=== PATIENT | female | born 1955 | race Caucasian/White ===

== ENCOUNTER 2020-12-19 10:18 | Inpatient (IN) ==
[2020-12-19] MEDS ORDERED: DEXAMETHASONE 4 MG TABLET PO ONE ×2 (10:46→11:00)
[2020-12-19] MEDS ORDERED: LACTATED RINGERS 1,000 ML IV ONE ×2 (10:52→12:27)
--- NOTE | 2020-12-19 10:57 | Emergency Department Note ---
SOB HPI General Chief Complaint: Shortness of Breath/Dyspnea Stated Complaint: shortness of breath, hypoxia, covid Time Seen by Provider: 12/19/20 10:32 Source: patient Mode of arrival: wheelchair Limitations: no limitations History of Present Illness HPI Narrative: Patient is a 65-year-old lady who arrives the emergency department by private vehicle accompanied by her complaining of cough. History is provided by the patient and her and supplemental information provided by the urgent care provider who initially evaluated them. The patient has had a cough for the last 8 days. This was gradual in onset has been progressively worsening. She denies any associated fever chills chest pain or shortness of breath. She has had decreased appetite and generalized malaise. Her has been ill with similar symptoms. They both presented to minor care this morning for evaluation and she was found to be hypoxemic with oxygen saturation in the low 80s on room air. A Covid swab was obtained at that time which was positive. She was then referred to the emergency department for further evaluation and treatment. Related Data Home Medications Medication Instructions Recorded Confirmed cranberry 1 tab PO DAILY 01/05/20 12/19/20 potassium gluconate 595 mg (99 mg) 595 mg PO .COMPLEX 01/05/20 12/19/20 tablet zinc gluconate 30 mg PO DAILY 11/25/20 12/19/20 Previous Rx's Medication Instructions Recorded cholecalciferol (vitamin D3) 1,250 1,250 mcg PO QMONTH #12 cap 04/05/20 mcg (50,000 unit) capsule levothyroxine 125 mcg tablet 125 mcg PO QDAY #90 tab 10/04/20 lisinopril 20 0.5 tab PO QDAY #45 tab 10/04/20 mg-hydrochlorothiazide 25 mg tablet Allergies Allergy/AdvReac Type Severity Reaction Status Date / Time sulfamethoxazole Allergy Intermediate facial Verified 12/19/20 10:23 swelling Review of Systems ROS ROS Narrative: Narrative: All systems ED: reviewed and negative except as stated. Constitutional: Denies fever and chills Gastrointestinal: Denies abdominal pain, nausea, vomiting and diarrhea PFSH Narrative Patient History Narrative: Narrative: Medical/Surgical/Family History All Active Problems (Updated 12/20/20 @ 08:05 by Fadi Merino DO) Acute respiratory failure due to COVID-19 (Acute) Hypoxia (Acute) Screening for malignant neoplasm of colon (Acute) Encounter to establish care (Acute) HLD (hyperlipidemia) (Acute) HTN (hypertension) (Acute) Hypothyroidism (Acute) History of knee replacement (Acute ~2014) History of tubal ligation (Acute ~1980) History of hysterectomy (Acute ~1989) Thyroid gland disease (Acute) History of colonoscopy (Acute) Dysuria (Acute) Medical History HLD (hyperlipidemia) HTN (hypertension) Hypothyroidism Screening for malignant neoplasm of colon Thyroid gland disease Surgical History History of colonoscopy History of hysterectomy (~1989) History of knee replacement (~2014) History of tubal ligation (~1980) Family History Family/Other Diabetes Grandparent Mother High blood pressure Social History Smoking Status: Never smoker Alcohol Intake Frequency: does not drink Substance Use: does not use Exam Narrative Narrative: I reviewed the vital signs. Gen -patient is awake and alert and in no acute distress. The patient is well groomed. HEENT -head is atraumatic. There is no conjunctival pallor or scleral icterus. Mucous membranes are dry CV -S1-S2 regular rate and rhythm. Peripheral pulses are palpable. There is no JVD. Resp -breathing is slightly labored with tachypnea and slight conversational dyspnea while on supplemental oxygen via nasal cannula. Lungs have mild rhonchi bilaterally. There is no cyanosis. GI - Abdomen is soft and nontender to palpation. There is no guarding or rebound tenderness. Derm -skin is warm and dry. There is no visible rash. MSK -present extremities are atraumatic. Psych -patient has appropriate affect. The patient does not appear internally stimulated. Neuro -patient answers questions appropriately with fluent speech. Patient moves all present extremities equally. General Limitations: no limitations Course Vital Signs Vital signs: Vital Signs Temperature 98.1 F 12/19/20 10:18 Pulse Rate 87 12/19/20 10:18 Respiratory Rate 24 H 12/19/20 10:18 Blood Pressure 123/78 12/19/20 10:18 Pulse Oximetry (%) 75 L 12/19/20 10:18 Temperature 97.6 F 12/20/20 04:01 Pulse Rate 58 L 12/20/20 06:02 Respiratory Rate 26 H 12/20/20 06:02 Blood Pressure 137/30 12/20/20 06:02 Pulse Oximetry (%) 92 12/20/20 06:11 MDM MDM Narrative Medical decision making narrative: Patient presents with cough and hypoxia. Chest x-ray reveals patchy multifocal infiltrates. Her Covid test is positive. Labs remarkable for leukopenia and transaminitis consistent with her Covid diagnosis. Patient does have a slight elevation in her troponin but given her symptoms and acute kidney injury I think this is likely due to a type II myocardial stress from her acute Covid infection. I discussed the test results with the patient and her . They are agreeable with plan for admission. I discussed the patient's history examination and diagnostic findings with Dr. Zaldivar, who agrees with the plan of care and accepts admission. Critical care time I provided 34 minutes of critical care time. This was in addition to any separately billable procedures. The patient was given supplemental oxygen to treat her hypoxemic respiratory failure. She was given corticosteroids to treat the causative Covid pneumonia. She was given IV fluids to treat her acute kidney injury.. The patient was closely monitored for response to treatment and stability of vital signs throughout their emergency department stay. Lab Data Lab results reviewed: Yes I reviewed the patient's lab results. Result diagrams: 12/20/20 04:49 12/19/20 10:53 Labs: Lab Results 12/19/20 12/19/20 12/19/20 Range/Units 10:53 10:53 10:54 WBC TNP RBC TNP Hgb TNP Hct TNP MCV TNP MCH TNP MCHC TNP RDW TNP Plt Count TNP MPV TNP Neut % (Auto) TNP Lymph % (Auto) TNP [place] % (Auto) TNP Eos % (Auto) TNP Baso % (Auto) TNP Lymph # (Auto) TNP [place] # (Auto) TNP Eos # (Auto) TNP Baso # (Auto) TNP Seg Neutrophils % (38-78) % Band Neutrophils % (0-10) % Lymphocytes % (15-49) % Monocytes % (Manual) (1-12) % Absolute Neutrophils TNP Differential Comment TNP Reactive Lymphocytes (0-2) % Platelet Estimate (Normal) RBC Morphology (Normal) VBG Lactic Acid (0.5-2.0) mmol/L Sodium 137 (133-145) mmol/L Potassium 4.0 (3.3-5.1) mmol/L Chloride 102 (96-108) mmol/L Carbon Dioxide 18 L (22-30) mmol/L Anion Gap 17.0 H (8.0-16.0) BUN 18 (8-23) mg/dL Creatinine 1.0 (0.6-1.1) mg/dL GFR Calculation 60 Glucose 95 (70-105) mg/dL Calcium 9.2 (8.6-10.4) mg/dL Total Bilirubin 0.5 (0.1-1.0) mg/dL AST 66 H (<32) U/L ALT 42 H (<40) U/L Alkaline Phosphatase 69 (39-117) U/L Total Protein 6.7 (5.9-8.4) gm/dL Albumin 3.2 (3.2-5.2) gm/dL Globulin 3.5 (2.2-3.7) gm/dL Albumin/Globulin Ratio 0.9 L (1.0-2.3) Procalcitonin 0.18 H (<0.10) ng/mL 12/19/20 12/19/20 Range/Units 11:24 11:35 WBC 3.8 L RBC 4.49 Hgb 14.0 Hct 39.8 MCV 88.6 MCH 31.2 MCHC 35.2 RDW 12.3 Plt Count 222 MPV 10.8 H Neut % (Auto) Lymph % (Auto) [place] % (Auto) Eos % (Auto) Baso % (Auto) Lymph # (Auto) [place] # (Auto) Eos # (Auto) Baso # (Auto) Seg Neutrophils % 65 (38-78) % Band Neutrophils % 8 (0-10) % Lymphocytes % 17 (15-49) % Monocytes % (Manual) 6 (1-12) % Absolute Neutrophils Differential Comment Reactive Lymphocytes 4 H (0-2) % Platelet Estimate Normal (Normal) RBC Morphology Normal (Normal) VBG Lactic Acid 1.1 (0.5-2.0) mmol/L Sodium (133-145) mmol/L Potassium (3.3-5.1) mmol/L Chloride (96-108) mmol/L Carbon Dioxide (22-30) mmol/L Anion Gap (8.0-16.0) BUN (8-23) mg/dL Creatinine (0.6-1.1) mg/dL GFR Calculation Glucose (70-105) mg/dL Calcium (8.6-10.4) mg/dL Total Bilirubin (0.1-1.0) mg/dL AST (<32) U/L ALT (<40) U/L Alkaline Phosphatase (39-117) U/L Total Protein (5.9-8.4) gm/dL Albumin (3.2-5.2) gm/dL Globulin (2.2-3.7) gm/dL Albumin/Globulin Ratio (1.0-2.3) Procalcitonin (<0.10) ng/mL Discharge Plan Patient/Caregiver Discharge Instructions Pt seen by BRICK MOLDER HAND/PA only: No Clinical Impression: Acute respiratory failure due to COVID-19 Patient Disposition: Xfer As Inpt ([facility]) Condition: Fair Discharge Date/Time: 12/19/20 19:18 Discharge Location: [facility]
--- NOTE | 2020-12-19 11:13 | XRay Report ---
INDICATION: pneumonia TECHNIQUE: AP portable upright chest x-ray COMPARISON: None FINDINGS: Lungs:Bilateral interstitial pulmonary parenchymal infiltrates. Although this appearance is nonspecific and is consistent with covid pneumonia. Heart, vascular:No significant cardiomegaly. Pulmonary vascularity is normal. No pulmonary edema or pulmonary congestion Mediastinum, dimas:No mediastinal widening. No hilar mass Pleura:No pleural fluid. No pleural-based mass or calcification Skeletal:Negative. IMPRESSION: 1. Bilateral interstitial pulmonary parenchymal infiltrates 2. Radiographic appearance is consistent with covid pneumonia Interpreted and Authenticated by: Amaury Cotto 12/19/20
[2020-12-19 11:54] LABS: ALT/SGPT 42 U/L (<40); AST/SGOT 66 U/L (<32); Albumin 3.2 gm/dL (3.2-5.2); Albumin/Globulin Ratio 0.9 (1.0-2.3); Alkaline Phosphatase 69 U/L (39-117); Bilirubin,Total 0.5 mg/dL (0.1-1.0); Blood Urea Nitrogen 18 mg/dL (8-23); Calcium 9.2 mg/dL (8.6-10.4); Carbon Dioxide 18 mmol/L (22-30); Chloride 102 mmol/L (96-108); Globulin 3.5 gm/dL (2.2-3.7); Glomerular Filtration Rate 60; Glucose 95 mg/dL (70-105)
[2020-12-19 12:25] LABS: Hematocrit 39.8 % (36.0-48.0); Mean Cell Volume 88.6 fL (80.0-100.0); Mean Corpuscular HGB Conc 35.2 g/dL (31.0-36.0); Mean Platelet Volume 10.8 fL (7.4-10.4); Platelet Count 222 K/mcL (140-440); RBC 4.49 M/mcL (4.00-5.20); Red Cell Distribution Width 12.3 % (11.5-14.5); WBC 3.8 K/mcL (4.5-11.0)
[2020-12-19 13:41] LABS: Band Neutrophils % 8 % (0-10); Lymphocytes % 17 % (15-49); Monocytes % (Manual) 6 % (1-12); Platelet Estimate NORMAL (Normal); RBC Morphology NORMAL (Normal); Reactive Lymphocytes 4 % (0-2); Segmented Neutrophils % 65 % (38-78)
[2020-12-19] MEDS ORDERED: BENZONATATE 100 MG CAPSULE PO ONE (14:10)
--- NOTE | 2020-12-19 17:54 | Internal Med History&Physical ---
HPI History of Present Illness Patient information: Note initiated : 12/19/20 at 5:47 pm Service Date, if different from initiated Date: [] Patient: Eduardo Solis 65 y/o F admitted on for shortness of breath, hypoxia, covid. Chief Complaint: [CoVID pneumonia] History of present illness: Ms. Solis is a 65 year old F history of hypertension and hypothyroidism, presenting with 8-day history of shortness of breath, nonproductive cough, and general body weakness. There is no prior similar episode. Patient denies any recent travel. Patient is living with her sharing similar symptoms and he is also being tested positive for Covid pneumonia. Patient is not vaccinated against Covid pneumonia. Patient was in her usual state of health until last Saturday when she developed sudden onset shortness of breath, nonproductive cough, and general body weakness. She denies any wheezing. She denies any fever, chills, or diaphoresis. She denies any loss of smell or taste sensations. She denies any chest pain or chest tightness. She denies any nausea, vomiting, diarrhea, or constipation's. Due to her symptoms, she presented to our ED for further evaluation and treatment. Vital signs upon ER presentation significant for hypoxia with oxygen saturation as low as in the 60s on room air. Keri test positive for Covid pneumonia. Labs significant for WBC of 3.8. Serum lactic acid 1.9. ABG showing pH of 7.42, PCO2 of 33, PO2 of 66, and bicarb of 21.4. Chest x-ray showing bilateral pulmonary infiltrates typical for Covid pneumonia. Constitutional Constitutional: Present weakness; Absent chills, excessive sweating, fatigue and fever(s) EENT Eyes: Absent blurry vision, change in vision, loss of vision and other visual disturbances Ears: Absent decreased hearing and tinnitus Nose, mouth and throat: Absent abnormal hearing, dry mouth, headache(s), nasal congestion and sore throat Cardiovascular Cardiovascular: Absent chest pain, chest pain at rest, edema, irregular heart rhythm and palpatations Respiratory Respiratory: Present cough, dyspnea and dyspnea on exertion; Absent wheezing Gastrointestinal Gastrointestinal: Absent abdominal pain, constipation, diarrhea, nausea and vomiting Musculoskeletal Musculoskeletal: Absent back pain, deformity, limited range of motion, muscle cramps, muscle weakness and numbness Integumentary Integumentary: Absent lesions, rash and wounds Neurological Neurological: Absent focal weakness, headache(s) and numbness Psychiatric Psychiatric: Absent anxiety, depression and hallucinations PFSH PFSH All Active Problems (Updated 12/19/20 @ 17:56 by Jerald Zaldivar MD) Acute respiratory failure due to COVID-19 (Acute) Hypoxia (Acute) Screening for malignant neoplasm of colon (Acute) Encounter to establish care (Acute) HLD (hyperlipidemia) (Acute) HTN (hypertension) (Acute) Hypothyroidism (Acute) History of knee replacement (Acute ~2014) History of tubal ligation (Acute ~1980) History of hysterectomy (Acute ~1989) Thyroid gland disease (Acute) History of colonoscopy (Acute) Dysuria (Acute) Medical History HLD (hyperlipidemia) HTN (hypertension) Hypothyroidism Screening for malignant neoplasm of colon Thyroid gland disease Surgical History History of colonoscopy History of hysterectomy (~1989) History of knee replacement (~2014) History of tubal ligation (~1980) Family History Family/Other Diabetes Grandparent Mother High blood pressure Social History marital status: alcohol intake frequency: does not drink substance use type: does not use MEDS/ALLERGIES Home Medications and Allergies Home Medications Medication Instructions Recorded Confirmed Type cranberry 1 tab PO DAILY 01/05/20 12/19/20 History potassium gluconate 595 mg (99 mg) 595 mg PO .COMPLEX 01/05/20 12/19/20 History tablet cholecalciferol (vitamin D3) 1,250 1,250 mcg PO QMONTH #12 cap 04/05/20 12/19/20 Rx mcg (50,000 unit) capsule levothyroxine 125 mcg tablet 125 mcg PO QDAY #90 tab 10/04/20 12/19/20 Rx lisinopril 20 0.5 tab PO QDAY #45 tab 10/04/20 12/19/20 Rx mg-hydrochlorothiazide 25 mg tablet zinc gluconate 30 mg PO DAILY 11/25/20 12/19/20 History Allergies Allergy/AdvReac Type Severity Reaction Status Date / Time sulfamethoxazole Allergy Intermediate facial Verified 12/19/20 10:23 swelling EXAM Constitutional Vitals: Temp Pulse Resp BP Pulse Ox 36.7 C 67 29 H 115/72 91 12/19/20 10:18 12/19/20 17:15 12/19/20 17:15 12/19/20 17:15 12/19/20 17:15 General appearance: cooperative and no acute distress Head Head exam: Present atraumatic and normocephalic Eye Eye exam: Present EOMI and PERRL ENT ENT exam: Present mucous membranes moist, normal exam and normal external ear exam Additional comments: Nasal cannula in place Neck Neck exam: Present normal inspection; Absent lymphadenopathy, tenderness and thyromegaly Respiratory Respiratory exam: Present rhonchi; Absent accessory muscle use, respiratory distress and wheezes Cardiovascular Cardiovascular exam: Present normal rate and rhythm; Absent JVD GI/Abdominal GI/Abdominal exam: Present normal bowel sounds and soft; Absent organomegaly and tenderness Extremities Exam Extremities exam: Present full ROM, normal capillary refill and normal inspection; Absent tenderness Neurological Exam Neurological exam: Present alert, CN II-XII intact and oriented X3; Absent motor sensory deficit Psychiatric Psychiatric exam: Present normal affect and normal mood; Absent anxious and depressed Skin Skin exam: Present dry and intact DATA Data Completed and Pending Labs: Labs from last 24 hours 12/19/20 12/19/20 12/19/20 11:35 11:24 10:53 WBC 3.8 L RBC 4.49 Hgb 14.0 Hct 39.8 MCV 88.6 MCH 31.2 MCHC 35.2 RDW 12.3 Plt Count 222 MPV 10.8 H Neut % (Auto) Lymph % (Auto) [place] % (Auto) Eos % (Auto) Baso % (Auto) Lymph # (Auto) [place] # (Auto) Eos # (Auto) Baso # (Auto) Seg Neutrophils % 65 Band Neutrophils % 8 Lymphocytes % 17 Monocytes % (Manual) 6 Absolute Neutrophils Differential Comment Reactive Lymphocytes 4 H Platelet Estimate Normal RBC Morphology Normal VBG Lactic Acid 1.1 Sodium 137 Potassium 4.0 Chloride 102 Carbon Dioxide 18 L Anion Gap 17.0 H BUN 18 Creatinine 1.0 GFR Calculation 60 Glucose 95 Calcium 9.2 Total Bilirubin 0.5 AST 66 H ALT 42 H Alkaline Phosphatase 69 Total Protein 6.7 Albumin 3.2 Globulin 3.5 Albumin/Globulin Ratio 0.9 L 12/19/20 10:53 WBC TNP RBC TNP Hgb TNP Hct TNP MCV TNP MCH TNP MCHC TNP RDW TNP Plt Count TNP MPV TNP Neut % (Auto) TNP Lymph % (Auto) TNP [place] % (Auto) TNP Eos % (Auto) TNP Baso % (Auto) TNP Lymph # (Auto) TNP [place] # (Auto) TNP Eos # (Auto) TNP Baso # (Auto) TNP Seg Neutrophils % Band Neutrophils % Lymphocytes % Monocytes % (Manual) Absolute Neutrophils TNP Differential Comment TNP Reactive Lymphocytes Platelet Estimate RBC Morphology VBG Lactic Acid Sodium Potassium Chloride Carbon Dioxide Anion Gap BUN Creatinine GFR Calculation Glucose Calcium Total Bilirubin AST ALT Alkaline Phosphatase Total Protein Albumin Globulin Albumin/Globulin Ratio A/P Assessment and plan (1) HTN (hypertension): Status: Acute (2) Hypothyroidism: Status: Acute (3) Acute respiratory failure due to COVID-19: Status: Acute Narrative A/P Narrative: Assessment and Plans: 1. CoVID Pneumonia: Admit to inpatient PCU with telemetry Supplemental oxygen therapy, titrate to achieve spo2 >=92. BiPAP stands by Isolation: airborne and contact CT chest w/o contrast Blood culture Inflammatory markers daily ABG in the morning Remdesivir Dexamethasone Lovenox Lasix Robitussin DM PRN cough Tylenol PRN fever DuoNEB NEB PRN wheezing or SOB cbc w/ auto diff in the morning to trend WBC 2. Essential HTN: Currently normotensive Lisinopril HCTZ 3. Hypothyroidism: Continue thyroid replacement therapy GI ppx: not currently indicated DVT ppx: Lovenox Code status: Full Prognosis: guarded Disposition: inpatient PCU Time Spent With Patient Time: Total time spent is greater than 50% in coordination of care (as documented) at patient's floor/unit and/or counseling patient: Total time spent with greater than 50% in coordination of care (as documented) at patient's floor/unit and/or counseling patient:: 25 - 35 minutes
[2020-12-19] MEDS ORDERED: ACETAMINOPHEN 325 MG TABLET PO PRN (19:35)
[2020-12-19] MEDS ORDERED: POTASSIUM GLUCONATE 595 MG PO SCH (19:35)
[2020-12-19] MEDS ORDERED: REMDESIVIR 200 MG in 0.9 % SODIUM CHLORIDE 250 ML IV ONE (19:35)
[2020-12-19] MEDS ORDERED: LACTULOSE 20 GM/30 ML ORAL.SOL PO PRN (19:35)
[2020-12-19] MEDS ORDERED: ONDANSETRON 4 MG/2 ML VIAL IV PRN (19:35)
[2020-12-19] MEDS ORDERED: IPRATROPIUM/ALBUTEROL 3 ML AMPUL.NEB NEB PRN (19:35)
[2020-12-19] MEDS ORDERED: SENNOSIDES 1 TABLET PO PRN (19:35)
[2020-12-19] MEDS: guaiFENesin/DEXTROMETHORPHAN ORAL SOL PO PRN (20:45)
[2020-12-19] MEDS: 0.9 % SODIUM CHLORIDE 10 ML SYRINGE IV SCH (20:46)
[2020-12-19] MEDS: ENOXAPARIN 100 MG/ML SYRINGE SQ SCH ×2 (20:46→20:49)
[2020-12-19] MEDS: DOCUSATE SODIUM 100 MG CAPSULE PO SCH (20:48)
[2020-12-19 22:49] LABS: Lactate Dehydrogenase 444 U/L (135-225)
[2020-12-20 00:16] LABS: INR 1.1 (0.9-1.1); Prothrombin Time 14.6 sec (11.9-14.5)
[2020-12-20] MEDS: 0.9 % SODIUM CHLORIDE 10 ML SYRINGE IV SCH ×2 (04:44→14:19)
[2020-12-20 07:02] LABS: Hematocrit 40.7 % (36.0-48.0); Mean Cell Volume 97.4 fL (80.0-100.0); Mean Corpuscular HGB Conc 31.9 g/dL (31.0-36.0); Mean Platelet Volume 10.8 fL (7.4-10.4); Platelet Count 202 K/mcL (140-440); RBC 4.18 M/mcL (4.00-5.20); Red Cell Distribution Width 13.1 % (11.5-14.5); WBC 3.2 K/mcL (4.5-11.0)
[2020-12-20 07:26] LABS: INR 1.1 (0.9-1.1); Prothrombin Time 14.6 sec (11.9-14.5)
[2020-12-20] MEDS ORDERED: LEVOTHYROXINE 125 MCG TABLET PO SCH ×2 (07:30→09:00)
[2020-12-20 07:31] LABS: Lactate Dehydrogenase 527 U/L (135-225)
[2020-12-20 08:40] LABS: Band Neutrophils % 15 % (0-10); Lymphocytes % 15 % (15-49); Metamyelocytes % 1 %; Monocytes % (Manual) 11 % (1-12); Platelet Estimate NORMAL (Normal); RBC Morphology NORMAL (Normal); Segmented Neutrophils % 58 % (38-78)
[2020-12-20] MEDS: guaiFENesin/DEXTROMETHORPHAN ORAL SOL PO PRN (08:45)
[2020-12-20] MEDS ORDERED: NON FORMULARY MEDICATION 1 DOSE MISCELL (Cholecalciferol (Vitamin D3) 1,250 mcg (50,000 un PO SCH (09:00)
[2020-12-20] MEDS ORDERED: HYDROCHLOROTHIAZIDE 12.5 MG CAPSULE PO SCH (09:00)
[2020-12-20] MEDS ORDERED: NON FORMULARY MEDICATION 1 DOSE MISCELL (Lisinopril-Hydrochlorothiazide 20-25 mg tablet) PO SCH (09:00)
[2020-12-20] MEDS ORDERED: LISINOPRIL 10 MG TABLET PO SCH (09:00)
[2020-12-20] MEDS ORDERED: FUROSEMIDE 20 MG/2 ML VIAL IV SCH (09:00)
[2020-12-20] MEDS ORDERED: ZINC SULFATE 50 MG CAPSULE PO SCH ×2 (09:00)
[2020-12-20] MEDS ORDERED: DEXAMETHASONE 10 MG/ML VIAL IV SCH (09:00)
[2020-12-20] MEDS ORDERED: cefTRIAXone 1 GM VIAL IV SCH (09:00)
[2020-12-20] MEDS ORDERED: CRANBERRY PO SCH (09:00)
[2020-12-20] MEDS: DOCUSATE SODIUM 100 MG CAPSULE PO SCH (09:04)
--- NOTE | 2020-12-20 09:27 | Internal Med Progress Note ---
SUBJECTIVE Subjective Patient information: Note initiated : 12/20/20 at 9:22 am Service Date, if different from initiated Date: [] Patient: Eduardo Solis 65 y/o F admitted on 12/19/20 for shortness of breath, hypoxia, covid. Chief Complaint: [CoVID pneumonia] History of present illness: Ms. Solis is a 65 year old F history of hypertension and hypothyroidism, presenting with 8-day history of shortness of breath, nonproductive cough, and general body weakness. There is no prior similar episode. Patient denies any recent travel. Patient is living with her sharing similar symptoms and he is also being tested positive for Covid pneumonia. Patient is not vaccinated against Covid pneumonia. Patient was in her usual state of health until last Saturday when she developed sudden onset shor tness of breath, nonproductive cough, and general body weakness. She denies any wheezing. She denies any fever, chills, or diaphoresis. She denies any loss of smell or taste sensations. She denies any chest pain or chest tightness. She denies any nausea, vomiting, diarrhea, or constipation's. Due to her symptoms, she presented to our ED for further evaluation and treatment. Vital signs upon ER presentation significant for hypoxia with oxygen saturation as low as in the 60s on room air. Keri test positive for Covid pneumonia. Labs significant for WBC of 3.8. Serum lactic acid 1.9. ABG showing pH of 7.42, PCO2 of 33, PO2 of 66, and bicarb of 21.4. Chest x-ray showing bilateral pulmonary infiltrates typical for Covid pneumonia. 12/20: Afebrile overnight. Tachypnea with RR up to mid 30s bpm overnight and this morning. Been switched to BiPAP overnight with current settings: FiO2 60%, IPAP/EPAP 25/02. Patient c/o shortness of breath, nonproductive cough. Denies wheezing. Denies fever or chills or sweating. Denies any chest pain or palpitation. Constitutional Vitals: Vital Signs Temp Pulse Resp BP Pulse Ox 36.4 C 67 34 H 115/69 97 12/20/20 04:01 12/20/20 08:48 12/20/20 08:48 12/20/20 08:01 12/20/20 08:48 Period Temp Pulse Resp BP Sys/Bergman Pulse Ox Last 24 Hr 36.3 C-36.8 C 56-87 20-42 98-147/30-89 75-98 Intake and Output 12/19/20 12/20/20 12/20/20 21:59 05:59 13:59 Intake Total 250 Output Total 275 100 Balance -275 150 Weight 107.32 kg Intake & Output: Intake & Output 12/19/20 12/20/20 12/20/20 21:59 05:59 13:59 Intake Total 250 Output Total 275 100 Balance -275 150 Weight 107.32 kg Intake: IV 250 Veklury 200 mg In Sodium 250 Chloride 0.9% 250 ml @ 500 mls/ hr IV ONCE ONE Rx#:[id number] Output: Void Amount 25 100 Urine/Stool Mix 250 Other: Urine Appearance Clear Urine Color Dark Yellow Urine Odor Normal Stool Size Smear Small Small Stool Color Brown Green Black Stool Consistency Loose Liquid Liquid # Bowel Movements 1 # of times incontinent of 1 2 Bowels General appearance: cooperative and no acute distress Head Head exam: Present atraumatic and normocephalic Eye Eye exam: Present EOMI and PERRL ENT ENT exam: Present mucous membranes moist, normal exam and normal external ear exam Additional comments: BiPAP in place Neck Neck exam: Present normal inspection; Absent lymphadenopathy, tenderness and thyromegaly Respiratory Respiratory exam: Absent accessory muscle use, respiratory distress and wheezes Additional comments: Coarse breath sounds across all lung lopez. Tachypnea Cardiovascular Cardiovascular exam: Present normal rate and rhythm; Absent JVD GI/Abdominal GI/Abdominal exam: Present normal bowel sounds and soft; Absent organomegaly and tenderness Extremities Exam Extremities exam: Present full ROM, normal capillary refill and normal inspection; Absent tenderness Neurological Exam Neurological exam: Present alert, CN II-XII intact and oriented X3; Absent motor sensory deficit Psychiatric Psychiatric exam: Present normal affect and normal mood; Absent anxious and depressed Skin Skin exam: Present dry and intact OBJ DATA Labs CBC & Chem 7: 12/20/20 04:49 12/19/20 10:53 Labs: Abnormal Lab Results 12/20/20 12/20/20 12/20/20 04:49 04:48 04:48 WBC 3.2 L MPV 10.8 H Band Neutrophils % 15 H Reactive Lymphocytes PT Fibrinogen D-Dimer Carbon Dioxide Anion Gap Ferritin 1606.0 H AST ALT Lactate Dehydrogenase 527 H C-Reactive Protein 10.10 H Albumin/Globulin Ratio Procalcitonin 0.14 H 12/20/20 12/19/20 12/19/20 04:48 21:26 21:26 WBC MPV Band Neutrophils % Reactive Lymphocytes PT 14.6 H Fibrinogen 643 H D-Dimer 1.26 H Carbon Dioxide Anion Gap Ferritin 1428.0 H AST ALT Lactate Dehydrogenase 444 H C-Reactive Protein 10.40 H Albumin/Globulin Ratio Procalcitonin 0.16 H 12/19/20 12/19/20 12/19/20 21:26 11:24 10:54 WBC 3.8 L MPV 10.8 H Band Neutrophils % Reactive Lymphocytes 4 H PT 14.6 H Fibrinogen 607 H D-Dimer 1.51 H Carbon Dioxide Anion Gap Ferritin AST ALT Lactate Dehydrogenase C-Reactive Protein Albumin/Globulin Ratio Procalcitonin 0.18 H 12/19/20 10:53 WBC MPV Band Neutrophils % Reactive Lymphocytes PT Fibrinogen D-Dimer Carbon Dioxide 18 L Anion Gap 17.0 H Ferritin AST 66 H ALT 42 H Lactate Dehydrogenase C-Reactive Protein Albumin/Globulin Ratio 0.9 L Procalcitonin Meds: Medications Acetaminophen (Acetaminophen 325 Mg Tablet) 650 mg PO Q6HP PRN; Protocol PRN Reason: Per Pain Protocol/Fever > 101 Last Admin: 12/19/20 20:47 Dose: 650 mg Documented by: Albuterol/Ipratropium (Ipratropium/Albuterol 3 Ml Ampul.Neb) 3 ml NEB Q4HP PRN PRN Reason: Shortness Of Breath Ceftriaxone Sodium (Ceftriaxone 1 Gm Vial) 1 gm IV Q24H [facility]; Protocol Dexamethasone (Dexamethasone 10 Mg/Ml Vial) 6 mg IV DAILY [facility] Docusate Sodium (Docusate Sodium 100 Mg Capsule) 100 mg PO BID [facility] Last Admin: 12/20/20 09:04 Dose: Not Given Documented by: Enoxaparin Sodium (Enoxaparin 100 Mg/Ml Syringe) 100 mg SQ BID [facility] Last Admin: 12/19/20 20:46 Dose: 100 mg Documented by: Furosemide (Furosemide 20 Mg/2 Ml Vial) 20 mg IV DAILY [facility] Guaifenesin (Guaifenesin/Dextromethorphan Oral Marci) 10 ml PO Q4HP PRN PRN Reason: Cough Last Admin: 12/19/20 20:45 Dose: 10 ml Documented by: REMDESIVIR 100 mg/ Sodium (Chloride) 250 mls @ 500 mls/hr IV Q24H [facility] Stop: 12/23/20 11:29 Azithromycin 500 mg/ Dextrose 250 mls @ 250 mls/hr IV Q24H [facility]; Protocol Stop: 12/22/20 10:59 Lactulose (Lactulose 20 Gm/30 Ml Oral.Marci) 10 gm PO DAILYP PRN PRN Reason: Constipation Levothyroxine Sodium (Levothyroxine 125 Mcg Tablet) 125 mcg PO QAMAC [facility] Last Admin: 12/20/20 07:04 Dose: 125 mcg Documented by: Ondansetron HCl (Ondansetron 4 Mg/2 Ml Vial) 4 mg IV Q4HP PRN; Protocol PRN Reason: Nausea And Vomiting Senna (Sennosides 1 Tablet) 2 tab PO HSP PRN PRN Reason: Constipation Sodium Chloride (0.9 % Sodium Chloride 10 Ml Syringe) 10 ml IV Q8 [facility] Last Admin: 12/20/20 04:44 Dose: 10 ml Documented by: Vitamin D (Vitamin D3 5,000 Unit Capsule) 5,000 unit PO QMONTH DAMON Zinc Sulfate (Zinc Sulfate 50 Mg Capsule) 50 mg PO DAILY [facility] A/P Assessment and plan (1) HTN (hypertension): Status: Acute (2) Hypothyroidism: Status: Acute (3) Acute respiratory failure due to COVID-19: Status: Acute Narrative A/P Narrative: Assessment and Plans: 1. CoVID Pneumonia: Stays in inpatient PCU with telemetry BiPAP with the following settings: FiO2 60%, IPAP/EPAP 16/10. Isolation: airborne and contact CT chest w/o contrast Blood culture Inflammatory markers daily ABG in the morning Remdesivir Dexamethasone Lovenox Lasix Rocephin Zithromax Robitussin DM PRN cough Tylenol PRN fever DuoNEB NEB PRN wheezing or SOB cbc w/ auto diff in the morning to trend WBC 2. Essential HTN: Currently normotensive Lisinopril HCTZ 3. Hypothyroidism: Continue thyroid replacement therapy GI ppx: not currently indicated DVT ppx: Lovenox Code status: Full Prognosis: guarded Disposition: inpatient PCU Time Spent With Patient Time: Total time spent is greater than 50% in coordination of care (as documented) at patient's floor/unit and/or counseling patient: QUALITY Stroke Symptom Onset Unknown: No VTE Deep Vein Thrombosis/Pulmonary Embolism Present on Admission: No
[2020-12-20] MEDS ORDERED: AZITHROMYCIN 500 MG in DEXTROSE 5% IN WATER 250 ML IV SCH (10:00)
[2020-12-20] MEDS: ENOXAPARIN 100 MG/ML SYRINGE SQ SCH ×2 (10:00→10:23)
[2020-12-20] MEDS ORDERED: REMDESIVIR 100 MG in 0.9 % SODIUM CHLORIDE 250 ML IV SCH (11:00)
--- NOTE | 2020-12-20 15:05 | Discharge Summary ---
Discharge Provider Provider Patient information: Note initiated : 12/20/20 at 3:01 pm Service Date, if different from initiated Date: [] Patient: Eduardo Solis 65 y/o F admitted on 12/19/20 for shortness of breath, hypoxia, covid. Chief Complaint: [CoVID pneumonia] Date of admission: 12/19/20 19:18 Discharge date: 12/20/20 Primary care physician: Anju Bush DO Consults: 12/19/20 Consult to Physician [CONS] Stat Comment: Consulting Provider: Jerald Zaldivar Reason For Exam: Physician to Consult COURSE Hospital Course Hospital course: Patient was admitted on December 19, 2020 for Covid pneumonia. She was started on Covid pneumonia standard of care including remdesivir, dexamethasone, Lovenox, Lasix as diuretics, supplemental oxygen's initially via nasal cannula between 4 to 6 L, which was being switched to BiPAP to was the first night. Antibiotics including Rocephin and Zithromax were also provided for bacterial superinfection coverage. Given how fast patients deteriorate clinically, transfer request was being made and patient was eventually been accepted on 12/[address] 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 Discharge diagnosis: CoVID pneumonia Time Spent with Patient Time attestation: Total time spent providing and/or coordinating discharge services: Patient was admitted on December 19, 2020 for Covid pneumonia. She was started on Covid pneumonia standard of care including remdesivir, dexamethasone, Lovenox, Lasix as diuretics, supplemental oxygen's initially via nasal cannula between 4 to 6 L, which was being switched to BiPAP to was the first night. Antibiotics including Rocephin and Zithromax were also provided for bacterial superinfection coverage. Given how fast patients deteriorate clinically, transfer request was being made and patient was eventually been accepted on 12/[address] 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 EXAM Constitutional Vitals: Temp Pulse Resp BP Pulse Ox 36.4 C 84 38 H 126/69 93 12/20/20 12:01 12/20/20 13:58 12/20/20 14:01 12/20/20 14:01 12/20/20 13:58 General appearance: cooperative and no acute distress Head Head exam: Present atraumatic and normocephalic Eye Eye exam: Present EOMI and PERRL ENT ENT exam: Present mucous membranes moist, normal exam and normal external ear exam Additional comments: BiPAP in place Neck Neck exam: Present normal inspection; Absent lymphadenopathy, tenderness and thyromegaly Respiratory Respiratory exam: Absent accessory muscle use, respiratory distress and wheezes Additional comments: coarse breath sound in all lung lopez Cardiovascular Cardiovascular exam: Present normal rate and rhythm; Absent JVD GI/Abdominal GI/Abdominal exam: Present normal bowel sounds and soft; Absent organomegaly and tenderness Extremities Exam Extremities exam: Present full ROM, normal capillary refill and normal inspection; Absent tenderness Neurological Exam Neurological exam: Present alert, CN II-XII intact and oriented X3; Absent motor sensory deficit Psychiatric Psychiatric exam: Present normal affect and normal mood; Absent anxious and depressed Skin Skin exam: Present dry and intact Discharge Data Data Completed and Pending Labs on day of discharge: Labs from last 24 hours 12/20/20 12/20/20 12/20/20 04:49 04:49 04:48 WBC TNP 3.2 L RBC TNP 4.18 Hgb TNP 13.0 Hct TNP 40.7 MCV TNP 97.4 MCH TNP 31.1 MCHC TNP 31.9 RDW TNP 13.1 Plt Count TNP 202 MPV TNP 10.8 H Neut % (Auto) TNP Lymph % (Auto) TNP [place] % (Auto) TNP Eos % (Auto) TNP Baso % (Auto) TNP Lymph # (Auto) TNP [place] # (Auto) TNP Eos # (Auto) TNP Baso # (Auto) TNP Seg Neutrophils % 58 Band Neutrophils % 15 H Lymphocytes % 15 Monocytes % (Manual) 11 Metamyelocytes % 1 Absolute Neutrophils TNP Differential Comment TNP Platelet Estimate Normal RBC Morphology Normal PT INR Fibrinogen D-Dimer Ferritin Lactate Dehydrogenase C-Reactive Protein Procalcitonin 0.14 H 12/20/20 12/20/20 12/19/20 04:48 04:48 21:26 WBC RBC Hgb Hct MCV MCH MCHC RDW Plt Count MPV Neut % (Auto) Lymph % (Auto) [place] % (Auto) Eos % (Auto) Baso % (Auto) Lymph # (Auto) [place] # (Auto) Eos # (Auto) Baso # (Auto) Seg Neutrophils % Band Neutrophils % Lymphocytes % Monocytes % (Manual) Metamyelocytes % Absolute Neutrophils Differential Comment Platelet Estimate RBC Morphology PT 14.6 H INR 1.1 Fibrinogen 643 H D-Dimer 1.26 H Ferritin 1606.0 H Lactate Dehydrogenase 527 H C-Reactive Protein 10.10 H Procalcitonin 0.16 H 12/19/20 12/19/20 12/19/20 21:26 21:26 10:54 WBC RBC Hgb Hct MCV MCH MCHC RDW Plt Count MPV Neut % (Auto) Lymph % (Auto) [place] % (Auto) Eos % (Auto) Baso % (Auto) Lymph # (Auto) [place] # (Auto) Eos # (Auto) Baso # (Auto) Seg Neutrophils % Band Neutrophils % Lymphocytes % Monocytes % (Manual) Metamyelocytes % Absolute Neutrophils Differential Comment Platelet Estimate RBC Morphology PT 14.6 H INR 1.1 Fibrinogen 607 H D-Dimer 1.51 H Ferritin 1428.0 H Lactate Dehydrogenase 444 H C-Reactive Protein 10.40 H Procalcitonin 0.18 H Discharge Plan Patient/Caregiver Discharge Instructions Activity: other Diet: NPO Prescriptions: Discontinued cranberry 1 tab PO DAILY RF: 0 potassium gluconate 595 mg (99 mg) tablet 595 mg PO .COMPLEX RF: 0 cholecalciferol (vitamin D3) 1,250 mcg (50,000 unit) capsule 1,250 mcg PO QMONTH Qty: 12 RF: 2 levothyroxine 125 mcg tablet 125 mcg PO QDAY Qty: 90 RF: 2 lisinopril-hydrochlorothiazide 20-25 mg tablet 0.5 tab PO QDAY Qty: 45 RF: 1 zinc gluconate 30 mg PO DAILY RF: 0 Follow Up Plan Follow up with: Anju Bush DO [Primary Care Provider] - Patient Disposition: Xfer Other Prognosis: Fair Rehab Potential: Critical I certify that the patient requires SNF services: No Overall status at discharge: patient is not back to baseline Discharge Orders: Discharge Order (Routine); Ordered 12/20/20 Ordered By: Jerald ESPINOZA VTE Deep Vein Thrombosis/Pulmonary Embolism Present on Admission: No
[2020-12-21] MEDS ORDERED: ENOXAPARIN 40 MG/0.4 ML SYRINGE SQ SCH (09:00)
[2021-01-11] MEDS ORDERED: VITAMIN D3 5,000 UNIT CAPSULE PO SCH (09:00)
== END 2020-12-20 16:10 | disposition other institution (70) | DRG 177 ==
LOC: ED 10:18 → ICU 19:18
PROVIDERS: ADMIT Internal Medicine; ATTEND Internal Medicine